=== PATIENT | female | born 1990 | race Caucasian/White ===

== ENCOUNTER 2017-03-16 21:56 | Emergency (ER) | payer MEDICAID ==
[~2017-03-16] VITALS: Ht 170.2 cm; Wt 93.9 kg
[~2017-03-16 21:56] MED LIST: ENOX100S5 SQ; ETHI1TAB5 PO; OXYC-307 PO; POLY17PO5 PO; WARF10TA PO
[2017-03-16] MEDS ORDERED: DEXAMETHASONE 4 MG/ML, 1ML PO ONE (23:00)
[2017-03-16] MEDS ORDERED: HYDROmorphone 1 MG/ML, 1ML IM ONE (23:00)
[2017-03-16] MEDS ORDERED: DIAZEPAM 5 MG TABLET PO ONE (23:00)
[2017-03-16] MEDS ORDERED: HYDROmorphone 1 MG/ML, 1ML ONE (23:09)
[2017-03-16] MEDS ORDERED: DEXAMETHASONE 4 MG/ML, 5ML ONE ×3 (23:10→23:14)
[2017-03-16] MEDS ORDERED: DIAZEPAM 5 MG TABLET ONE (23:10)
[2017-03-17 00:22] VITALS: BP 111/78
== END 2017-03-17 01:10 | disposition home or self-care (01) ==
LOC: ED 03-17 00:08
DX: S39.012A Strain of muscle, fascia and tendon of lower back, initial encounter (principal); S29.011A Strain of muscle and tendon of front wall of thorax, initial encounter; M54.12 Radiculopathy, cervical region; X58.XXXA Exposure to other specified factors, initial encounter; Y93.89 Activity, other specified; Y92.89 Other specified places as the place of occurrence of the external cause; Y99.8 Other external cause status
CPT/HCPCS: 72125; 93005; 96372; 99284; J1100; J1170